=== PATIENT | male | born 1985 | race Caucasian/White ===

== ENCOUNTER 2018-01-14 06:40 | Emergency (ER) | payer OTHER ==
[~2018-01-14] VITALS: Ht 175.3 cm; Wt 99.8 kg
[2018-01-14] MEDS ORDERED: AUGMENTIN 500-1 EACH PO (07:15)
[2018-01-14] MEDS ORDERED: NORCO 5-325 TA1 EACH PO (07:15)
[2018-01-14 07:57] VITALS: BP 119/83
== END 2018-01-14 07:58 | disposition home or self-care (01) ==
LOC: M.ERS 06:40
DX: S61.230A Puncture wound without foreign body of right index finger without damage to nail, initial encounter (principal); L03.011 Cellulitis of right finger; F17.210 Nicotine dependence, cigarettes, uncomplicated; Z91.018 Allergy to other foods; W54.0XXA Bitten by dog, initial encounter; Y93.89 Activity, other specified; Y92.89 Other specified places as the place of occurrence of the external cause; Y99.8 Other external cause status